=== PATIENT | male | born 1955 | race Hispanic/Latino ===

== ENCOUNTER → 2018-01-23 | Outpatient (CLI) | payer OTHER ==
[~2018-01-23] MED LIST: CALC600T12 PO; CHOL200074 PO; FEXO1TAB5 PO; IBUP200C5 PO; MULT-298 PO; OMEG1CAP6 PO; TAMS0.4C32 PO
== END | disposition home or self-care (01) ==
LOC: RAH 14:26
PROVIDERS: ATTEND Family Medicine
DX: M75.102 Unspecified rotator cuff tear or rupture of left shoulder, not specified as traumatic (principal); M19.012 Primary osteoarthritis, left shoulder; M25.412 Effusion, left shoulder
CPT/HCPCS: 73221